=== PATIENT | male | born 1995 | race Caucasian/White ===

== ENCOUNTER 2019-02-18 12:39 | Emergency (ER) | payer OTHER, BC ==
[2019-02-18] MEDS: LORAZEPAM 1 MG TAB PO (13:04)
== END 2019-02-18 13:51 | disposition home or self-care (01) ==
LOC: E/R 12:39
DX: F15.10 Other stimulant abuse, uncomplicated (principal)
CPT/HCPCS: 99283; Z7502

== ENCOUNTER 2019-02-18 16:01 | Emergency (ER) | payer OTHER | END 2019-02-18 18:27 | disposition home or self-care (01) | LOC: E/R 18:27 | DX: F15.10 Other stimulant abuse, uncomplicated (principal) | CPT/HCPCS: 99282; Z7502 ==